=== PATIENT | male | born 1970 | race African-American/Black ===

== ENCOUNTER 2020-11-23 07:51 | Emergency (ER) | payer OTHER ==
[~2020-11-23] VITALS: Ht 177.8 cm; Wt 117.9 kg
[2020-11-23] MEDS ORDERED: AZITHROMYCIN 500MG/ 250ML 250 ML IV ONE (08:30)
[2020-11-23] MEDS ORDERED: FUROSEMIDE 20 MG/2 ML VIAL IV ONE (08:30)
[2020-11-23 10:56] LABS: Albumin 3.2 g/dL (3.4-5.0); Anion Gap 13 (5-15); Blood Urea Nitrogen 59 mg/dL (7-18); Calcium 9.2 mg/dL (8.5-10.1); Carbon Dioxide 28 mmol/L (21-32); Chloride 90 mmol/L (98-107); Glucose 166 mg/dL (74-106); Potassium 4.8 mmol/L (3.5-5.1); Sodium 131 mmol/L (136-145)
[2020-11-23 11:09] LABS: Basophils # (auto) 0.1 10 ^3/uL (0-0.2); Basophils % (auto) 0.7 % (0.0-2.0); Eosinophils # (auto) 0 10 ^3/uL (0-0.8); Hematocrit 31.8 % (41.0-53.0); Hemoglobin 10.6 g/dL (13.5-17.5); Lymphocytes # (auto) 0.5 10 ^3/uL (0.4-5.4); Lymphocytes % (auto) 7.3 % (10.0-50.0); Mean Corpuscular Hemoglobin 32.1 pg (28.0-32.0); Mean Corpuscular Hgb Conc. 33.4 g/dL (32.0-36.0); Monocytes # (auto) 0.5 10 ^3/uL (0-1.3); Nucleated Red Blood Cells % 0.4 %; Red Blood Cells 3.31 10^6/uL (4.5-5.90)
[2020-11-23 11:10] LABS: Alanine Aminotransferase 36 U/L (16-61); Alkaline Phosphatase 106 U/L (45-117); Aspartate Aminotransferase 70 U/L (15-37); BUN/Creatinine Ratio 4.8; Bilirubin, Total 0.7 mg/dL (0.2-1.0); GFR African American 6 mL/min; GFR Non-African American 5 mL/min; Lactate Dehydrogenase 456 U/L (87-241); Total Protein 8.4 g/dL (6.4-8.2)
[2020-11-23 11:18] LABS: CRP High Sensitivity > 19.0 mg/dL (< 0.3)
[2020-11-23 11:35] LABS: INR 1.15 (0.9-1.15); Partial Thromboplastin Time 49.3 sec (23.0-31.2)
[2020-11-23] MEDS ORDERED: EPINEPHrine HCL 1 MG/1 ML AMP ONE (13:39)
[2020-11-23] MEDS ORDERED: SODIUM BICARBONATE 8.4 % INJ 50ML VIAL IV ONE ×3 (13:40→14:14)
[2020-11-23] MEDS ORDERED: SODIUM BICARBONATE 8.4% INJ 50ML SYRINGE ONE ×3 (13:40→14:14)
[2020-11-23] MEDS ORDERED: ETOMIDATE (2MG/ML) 20ML VIAL IV ONE (13:40)
[2020-11-23 13:45] VITALS: BP 166/74
[2020-11-23] MEDS: EPINEPHrine HCL 1 MG/10 ML SYRG ONE ×2 (13:59→14:21)
[2020-11-23] MEDS ORDERED: EPINEPHrine HCL 250 ML IV SCH (13:59)
[2020-11-23 14:02] VITALS: BP 158/70
== END 2020-11-23 14:17 ==
LOC: ER 07:51 → EDBD 07:51 → ER 14:17
DX: J96.01 Acute respiratory failure with hypoxia (principal); I13.2 Hypertensive heart and chronic kidney disease with heart failure and with stage 5 chronic kidney disease, or end stage renal disease; I50.43 Acute on chronic combined systolic (congestive) and diastolic (congestive) heart failure; N18.6 End stage renal disease; J18.9 Pneumonia, unspecified organism; E46 Unspecified protein-calorie malnutrition; I46.9 Cardiac arrest, cause unspecified; I26.09 Other pulmonary embolism with acute cor pulmonale; Z20.822 Contact with and (suspected) exposure to COVID-19
CPT/HCPCS: 31500; 36415; 36600; 71045; 80053; 82728; 82805; 82962; 83615; 83880; 84484; 85025; 85379; 85610; 85730; 86141; 87070; 87205; 87426; 94003; 96365; 96375; 99291; C9803; J0171; J0456; J1940; U0003; 87077; 87186; 93005